=== PATIENT | male | born 1980 | race Caucasian/White ===

== ENCOUNTER 2016-07-14 21:40 | Emergency (ER) | payer OTHER ==
[2016-07-14 21:48] VITALS: BP 115/77; PULSE 96; RESP 16; TEMP 97.7; O2SAT 93
--- NOTE | 2016-07-14 22:06 | EDPHY ---
HPI/HX/ROS/PE/MDM Narrative: CHIEF COMPLAINT: Right jay laceration HPI: This patient is a normally healthy 35 year old male who presents to the Emergency Department with a laceration to his right jay obtained when he crossed [place] this afternoon and accidentally hit his leg on a rock. He denies pain to the site of the injury and is able to ambulate appropriately. He denies any additional injuries secondary to the event. He does not believe his Tetanus is up-to-date. REVIEW OF SYSTEMS: Aside from elements discussed in the HPI, a comprehensive 10-point review of systems was reviewed and is negative. PMH: Denies SOCIAL HISTORY: Works as a automotive software engineer. Denies illicit drug use. PHYSICAL EXAM: General:Patient is alert, in no acute distress. Focused exam of the right lower extremity: 2.5cm laceration to the anterior right jay without surrounding erythema or swelling. Normal ROM of the RLE without pain. Sensation and motor strength in tact. ED Course: Normally healthy 35-year-old male presents with a 2.5cm laceration to his right anterior jay secondary to hitting his leg on a rock while crossing [place] on a climbing excursion today. He denies pain or additional injuries. On exam, he has no tenderness or swelling to the site of the injury and has full ROM without pain. Will proceed with laceration repair but no imaging at this time. Procedure: Laceration repair. Verbal consent was obtained from the patient. The 2.5cm linear laceration on the right anterior jay was anesthetized using lidocaine. The wound was cleaned with standard ED protocol, draped and explored to its base with a gloved finger. There were no deep structures involved. The wound was repaired in single layer technique with three 4-0 Prolene sutures. The wound repair was simple. The procedure was performed by myself, Dr. Major. The patient was given return precautions and wound care instructions prior to discharge. He will be discharged home in good condition with instructions to return for suture removal in 10 days. General Time Seen by Provider: 07/14/16 22:00 Initial Vital Signs: Initial Vital Signs Temperature (C) 36.5 C 07/14/16 21:45 Heart Rate 96 07/14/16 21:45 Respiratory Rate 16 07/14/16 21:45 Blood Pressure 115/77 07/14/16 21:45 O2 Sat (%) 93 07/14/16 21:45 O2 Delivery Mode Room Air Allergies/Adverse Reactions: No Known Allergies Allergy (Unverified 07/14/16 21:45) Home Medications: Medication Instructions Recorded Cephalexin [Keflex] 500 mg PO TID #14 cap 07/14/16 Departure - Departure Disposition: Home, Routine, Self-Care Clinical Impression: Leg laceration Qualifiers: Encounter type: initial encounter Laterality: right Qualified Code(s): S81.811A - Laceration without foreign body, right lower leg, initial encounter Condition: Good Instructions: Care For Your Stitches (ED), Laceration (ED) Additional Instructions: 1. Keep your wound clean and dry. You may shower, but do not submerge your wound for extended time (ie: swimming, bathing). 2. Take the full course of Keflex as prescribed to prevent infection. 3. Return to the Emergency Department for suture removal in 10 days. 4. Return to the Emergency Department immediately for severe pain or swelling to the site of your laceration, discharge from your wound, red streaking up your leg, fever or chills, or for other serious concerns. Referrals: Shirley Kuo DO [Doctor of Osteopathy] - As per Instructions Prescriptions: Cephalexin [Keflex] 500 mg PO TID #14 cap Report Scribed for: Doc Major Report Scribed by: Sally Jaquez Date of Report: 07/14/16 Time of Report: 22:02 Physician Review and Approval Statement: Portions of this note were transcribed by an ED scribe. I personally performed the history, physical exam, and medical decision making; and confirm the accuracy of the information in the transcribed note.
[2016-07-14] MEDS ORDERED: CEPHALEXIN 500 MG CAP PO ONE (22:14)
[2016-07-14] MEDS ORDERED: TDAP ADULT 0.5 ML INJ (BOOSTRIX) IM ONE (22:15)
== END 2016-07-14 22:44 | disposition home or self-care (01) ==
PROC: 0HQ1XZZ Repair Face Skin, External Approach (ICD-10-PCS; principal; 2016-07-14)
DX: S81.811A Laceration without foreign body, right lower leg, initial encounter (principal); Z23 Encounter for immunization; W22.8XXA Striking against or struck by other objects, initial encounter; Y92.89 Other specified places as the place of occurrence of the external cause

== ENCOUNTER 2016-07-18 16:42 | Emergency (ER) | payer BC, OTHER ==
[2016-07-18 16:50] VITALS: TEMP 97.9
[2016-07-18] MEDS ORDERED: VANCOMYCIN HCL/NORMAL SALINE 250 ML IV ONE (17:33)
[2016-07-18 18:51] LABS: % IMMATURE GRANULYOCYTES 0.2 % (0.0-1.1); ABSOLUTE IMMATURE GRANULOCYTES 0.01 10^3/uL (0.00-0.10); ADD DIFF? NO; ADD MORPH? NO; ADD SCAN? NO; ATYPICAL LYMPHOCYTE FLAG 0 (0-99); FRAGMENT RBC FLAG 0 (0-99); HEMATOCRIT 46.1 % (40.0-51.0); HEMOGLOBIN 16.3 g/dL (13.7-17.5); LEFT SHIFT FLG 0 (0-99); LIPEMIA HEMOLYSIS FLAG 90 (0-99); MEAN CELL HEMOGLOBIN CONCENTR. 35.4 g/dL (32.4-36.7); MEAN CELL VOLUME 90.6 fL (81.5-99.8); MEAN PLATELET VOLUME 10.1 fL (8.7-11.7); PLATELET CLUMPS FLAG 0 (0-99); PLATELET COUNT 208 10^3/uL (150-400); RED BLOOD CELL COUNT 5.09 10^6/uL (4.40-6.38)
[2016-07-18 18:54] LABS: ANION GAP 12 mEq/L (8-16); CALCIUM 9.2 mg/dL (8.5-10.4); CARBON DIOXIDE 25 mEq/l (22-31); CHLORIDE 104 mEq/L (97-110); GLOMERULAR FILTRATION RATE > 60; GLUCOSE 70 mg/dL (70-100); POTASSIUM 4.5 mEq/L (3.5-5.2); SODIUM 141 mEq/L (134-144)
--- NOTE | 2016-07-18 19:11 | EDPHY ---
H & P Stated Complaint: sutured r jay friday now with redness and swelling Time Seen by Provider: 07/18/16 17:24 HPI/ROS: Chief complaint: Wound recheck History of present illness: This is a 35-year-old male who presents to the emergency department for wound recheck. Patient reports approximately 5 days ago he fell and cut his right jay while hiking. He was seen in this emergency department and the wound was cleaned, sutured and dressed. He was prescribed Keflex. He states he went home and the next day he started get pain and swelling around the wound. The following day he started the Keflex he had been prescribed and symptoms appeared to be improving for a little bit but have again returned and worsened. He states his pain and swelling around the wound is now involving more of his jay and he has developed some swelling in his ankle. He denies other associated signs or symptoms including no fevers, chills or rigors, he is still moving the right lower leg without difficulty, he is ambulating well. Review of systems: A 10 point review of systems was obtained and other than described above was negative - Personal History Current Tetanus/Diphtheria Vaccine: Yes - Medical/Surgical History Hx Asthma: No Hx Chronic Respiratory Disease: No Hx Diabetes: No Hx Cardiac Disease: No Hx Renal Disease: No Hx Cirrhosis: No Hx Alcoholism: No Hx HIV/AIDS: No Hx Splenectomy or Spleen Trauma: No Other PMH: PMHx: denies. PSHx: umbilical hernia, pyloric stenosis, wisdom tooth extraction - Social History Smoking Status: Never smoked - Physical Exam Exam: General Appearance: Alert, nontoxic. Eyes: Pupils equal and round no injection. Respiratory: Chest is non tender, lungs are clear to auscultation. Cardiac: regular rate and rhythm Gastrointestinal: Abdomen is soft and non tender, no masses, bowel sounds normal. Musculoskeletal: Extremities have full range of motion and are non tender. He is ambulating well. Skin: Extensive tattoos to the lower extremities making examination difficult. There does appear to be some erythema and edema to the right jay. No induration or fluctuance, no red streaking up the leg noted. Constitutional: Initial Vital Signs Temperature (C) 36.6 C 07/18/16 16:48 Heart Rate 75 07/18/16 16:48 Respiratory Rate 17 07/18/16 16:48 Blood Pressure 117/76 07/18/16 16:48 O2 Sat (%) 96 07/18/16 16:48 O2 Delivery Mode Room Air Allergies/Adverse Reactions: No Known Allergies Allergy (Verified 07/18/16 16:47) Home Medications: Medication Instructions Recorded Cephalexin [Keflex] 500 mg PO TID #14 cap 07/14/16 Sulfamethox/Tmp 800/160 mg 1 tab PO BID 10 Days 07/18/16 [Bactrim Ds] Medical Decision Making - Diagnostics Imaging Results: Imaging Impressions Extremity Venous Study 07/18/16 17:33 Impression: No deep venous thrombosis right leg. Findings and recommendations discussed with Emergency Department physician, SIDRA Cannon at 18:45 hour, 07/18/2016. Final report concurs with initial preliminary interpretation. Imaging: Discussed imaging studies w/ finish filer Radiologist ED Course/Re-evaluation: Patient is discussed with my secondary supervising physician Dr. Flavio Pizano. Patient presents to the emergency department concerned he is developing an infection around a wound that occurred 5 days ago. History and physical exam is concerning for developing cellulitis. I do not appreciate evidence of complications such as abscess formation, lymphangitis or necrotizing fasciitis. He has been on Keflex and he is still worsening. He is given a dose of IV vancomycin. He appeared to develop red man syndrome towards the end of it with only a few cc of medication left, medication was discontinued he was observed with improvement in symptoms. He is started on Bactrim on an outpatient basis. He is asked to follow up with a primary care doctor for recheck. Home care is discussed. Return precautions are given. Differential Diagnosis: Included but not limited to cellulitis, abscess, lymphangitis, DVT, unlikely necrotizing fasciitis given the fact that mild pain and he is moving his leg well and he is not febrile and he has no white blood cell count - Data Points Laboratory Results: Laboratory Results 07/18/16 18:30 07/18/16 18:30 07/18/16 07/18/16 18:30 18:30 WBC 5.03 10^3/uL 10^3/uL (3.80-9.50) RBC 5.09 10^6/uL 10^6/uL (4.40-6.38) Hgb 16.3 g/dL g/dL (13.7-17.5) Hct 46.1 % % (40.0-51.0) MCV 90.6 fL fL (81.5-99.8) MCH 32.0 pg pg (27.9-34.1) MCHC 35.4 g/dL g/dL (32.4-36.7) RDW 12.0 % % (11.5-15.2) Plt Count 208 10^3/uL 10^3/uL (150-400) MPV 10.1 fL fL (8.7-11.7) Neut % (Auto) 62.8 % % (39.3-74.2) Lymph % (Auto) 23.5 % % (15.0-45.0) Logan % (Auto) 11.5 % % (4.5-13.0) Eos % (Auto) 1.8 % % (0.6-7.6) Baso % (Auto) 0.2 % L % (0.3-1.7) Nucleat RBC Rel Count 0.0 % % (0.0-0.2) Absolute Neuts (auto) 3.16 10^3/uL 10^3/uL (1.70-6.50) Absolute Lymphs (auto) 1.18 10^3/uL 10^3/uL (1.00-3.00) Absolute Monos (auto) 0.58 10^3/uL 10^3/uL (0.30-0.80) Absolute Eos (auto) 0.09 10^3/uL 10^3/uL (0.03-0.40) Absolute Basos (auto) 0.01 10^3/uL L 10^3/uL (0.02-0.10) Absolute Nucleated RBC 0.00 10^3/uL 10^3/uL (0-0.01) Immature Gran % 0.2 % % (0.0-1.1) Immature Gran # 0.01 10^3/uL 10^3/uL (0.00-0.10) Sodium 141 mEq/L mEq/L (134-144) Potassium 4.5 mEq/L mEq/L (3.5-5.2) Chloride 104 mEq/L mEq/L (97-110) Carbon Dioxide 25 mEq/l mEq/l (22-31) Anion Gap 12 mEq/L mEq/L (8-16) BUN 15 mg/dL mg/dL (7-23) Creatinine 1.0 mg/dL mg/dL (0.7-1.3) Estimated GFR > 60 Glucose 70 mg/dL mg/dL (70-100) Calcium 9.2 mg/dL mg/dL (8.5-10.4) Medications Given: Discontinued Medications Diphenhydramine HCl (Benadryl) 50 mg PO EDNOW ONE Stop: 07/18/16 19:50 Last Admin: 07/18/16 19:45 Dose: 50 mg Vancomycin/Sodium Chloride (Vancomycin 1 Gm (Premix)) 250 mls @ 250 mls/hr IV EDNOW ONE PRN Reason: Protocol Stop: 07/18/16 18:32 Last Admin: 07/18/16 18:30 Dose: 250 mls Departure - Departure Disposition: Home, Routine, Self-Care Clinical Impression: Cellulitis of right leg Condition: Good Instructions: Cellulitis (ED) Additional Instructions: Follow-up with the primary care doctor for recheck Finish your cephalexin antibiotic Take Bactrim as prescribed until finished even feeling better Apply warm compresses to the region multiple times daily If symptoms worsen or new symptoms develop return to the emergency room for recheck Referrals: NONE *PRIMARY CARE P,. [Primary Care Provider] - As per Instructions Prescriptions: Sulfamethox/Tmp 800/160 mg [Bactrim Ds] 1 tab PO BID 10 Days
[2016-07-18] MEDS ORDERED: diphenhydrAMINE 25 MG CAP PO ONE ×2 (19:47→19:49)
[2016-07-18 19:56] VITALS: BP 116/84; PULSE 72; RESP 16; O2SAT 99
== END 2016-07-18 20:30 | disposition home or self-care (01) ==
DX: L03.115 Cellulitis of right lower limb (principal)
CPT/HCPCS: 96365; J3370

== ENCOUNTER → 2017-11-10 | Outpatient (CLI) | payer OTHER | LOC: FIMAGING 16:18 | PROVIDERS: ATTEND Physician Assistant Medical | DX: S99.921A Unspecified injury of right foot, initial encounter (principal); Y93.9 Activity, unspecified ==